=== PATIENT | female | born 1980 | race Asian ===

== ENCOUNTER 2020-05-07 10:59 | Outpatient (REF) | payer OTHER, SELFPAY ==
[2020-05-07 11:38] LABS: COVID-19 Test Negative (Negative)
== END 2020-05-07 11:00 | disposition home or self-care (01) ==
LOC: HO.EMPCOV 10:59
PROVIDERS: PCP Nurse Practitioner Family; Visit Provider Internal Medicine
DX: Z20.828 Contact with and (suspected) exposure to other viral communicable diseases (principal)
CPT/HCPCS: 87635; C9803

== ENCOUNTER 2020-05-11 12:05 | Outpatient (REF) | payer OTHER, SELFPAY ==
[2020-05-11 13:34] LABS: COVID-19 Test Negative (Negative)
== END 2020-05-11 12:06 | disposition home or self-care (01) ==
LOC: HO.EMPCOV 12:05
PROVIDERS: Visit Provider Internal Medicine
DX: Z20.828 Contact with and (suspected) exposure to other viral communicable diseases (principal)
CPT/HCPCS: 87635; C9803

== ENCOUNTER 2020-05-13 07:32 | Outpatient (REF) | payer OTHER, SELFPAY ==
[2020-05-13 08:43] LABS: COVID-19 Test Negative (Negative); IDNOW Serial# 55D5AD1C
== END 2020-05-13 07:33 | disposition home or self-care (01) ==
LOC: HO.LAB 07:32
PROVIDERS: Visit Provider Internal Medicine
DX: Z20.828 Contact with and (suspected) exposure to other viral communicable diseases (principal)
CPT/HCPCS: 87635; C9803

== ENCOUNTER 2020-07-29 11:15 | Outpatient (REF) | payer OTHER, SELFPAY ==
[2020-07-29 11:40] LABS: COVID-19 Test Negative (Negative); IDNOW Serial# 55D5AD1C
== END 2020-07-29 11:16 | disposition home or self-care (01) ==
LOC: HO.EMPCOV 11:15
PROVIDERS: Visit Provider Internal Medicine
DX: Z20.822 Contact with and (suspected) exposure to COVID-19 (principal)
CPT/HCPCS: 36415; 87635; C9803

== ENCOUNTER 2020-10-28 13:20 | Outpatient (REF) | payer OTHER, SELFPAY ==
[2020-10-28 13:59] LABS: COVID-19 Test Negative (Negative)
== END 2020-10-28 13:21 | disposition home or self-care (01) ==
LOC: HO.EMPCOV 13:20
PROVIDERS: Visit Provider Internal Medicine
DX: Z20.822 Contact with and (suspected) exposure to COVID-19 (principal)
CPT/HCPCS: 36415; 87635; C9803

== ENCOUNTER 2020-12-30 10:44 | Outpatient (REF) | payer OTHER, SELFPAY ==
[2020-12-30 13:30] LABS: HCG Quantitative 6 mIU/mL
== END 2020-12-30 10:45 | disposition home or self-care (01) ==
LOC: HO.LAB 10:44
PROVIDERS: Visit Provider Obstetrics & Gynecology
DX: O20.0 Threatened abortion (principal)
CPT/HCPCS: 36415; 84702; 86850; 86900; 86901

== ENCOUNTER 2021-01-06 11:53 | Outpatient (REF) | payer OTHER, SELFPAY ==
[2021-01-06 13:11] LABS: HCG Quantitative < 2 mIU/mL
== END 2021-01-06 11:54 | disposition home or self-care (01) ==
LOC: HO.LAB 11:53
PROVIDERS: PCP Nurse Practitioner Family; Visit Provider Obstetrics & Gynecology
DX: O03.9 Complete or unspecified spontaneous abortion without complication (principal)
CPT/HCPCS: 36415; 84702

== ENCOUNTER → 2021-01-21 10:52 | Outpatient (BNVA) | payer SELFPAY | PROVIDERS: PCP Nurse Practitioner Family | DX: Z20.822 Contact with and (suspected) exposure to COVID-19 (principal) | CPT/HCPCS: 36415; 87635 ==